=== PATIENT | female | born 1995 | race African-American/Black ===

== ENCOUNTER 2024-04-03 15:16 | Emergency (ER) | payer MEDICAID, OTHER ==
[~2024-04-03] VITALS: Ht 170.2 cm; Wt 70.0 kg
[2024-04-03 15:23] VITALS: BP 125/88; PULSE 111; RESP 16; TEMP 98.8; O2SAT 100
== END 2024-04-03 17:30 | disposition left against medical advice (07) ==
LOC: ER 15:16
DX: M54.9 Dorsalgia, unspecified (principal); Z53.21 Procedure and treatment not carried out due to patient leaving prior to being seen by health care provider